=== PATIENT | male | born 1965 | race Caucasian/White ===

== ENCOUNTER 2019-05-14 09:56 | Emergency (ER) | payer MEDICAID ==
--- NOTE | 2019-05-14 10:43 | EDM.PDOC ---
ED HPI GENERAL MEDICAL PROBLEM - General Chief Complaint: General Stated Complaint: CHILLS,WEAKNESS,BODY ACHES Time Seen by Provider: 05/14/19 10:35 Source of Information: Reports: Patient History Limitations: Reports: No Limitations - History of Present Illness INITIAL COMMENTS - FREE TEXT/NARRATIVE: pt has been at [facility] since the Apr, He feels quite ill at this point. He hurts all over. He has had chills and he has had a cough. He does smoke 1 pack daily. Onset: Other ( this has been going on for the past 2 days. ) Duration: Hour(s): Location: Reports: Chest, Generalized Associated Symptoms: Reports: Cough, Fever/Chills - Related Data Allergies Allergy/AdvReac Type Severity Reaction Status Date / Time bee venom protein (honey bee) Allergy Airway Verified 05/14/19 10:12 Tightness morphine Allergy Nausea and Verified 05/14/19 10:12 Vomiting Home Meds: Home Meds Divalproex Sodium [Divalproex Sodium ER] 250 mg PO DAILY 05/14/19 [History] Pantoprazole [ProTONIX] 40 mg PO DAILY 05/14/19 [History] Tamsulosin [Tamsulosin 24 Hr] 0.4 mg PO DAILY 05/14/19 [History] Venlafaxine HCl [Venlafaxine ER] 150 mg PO DAILY 05/14/19 [History] guaiFEN/Phenyleph/Acetaminophn [Severe Sinus Congest-Pain Cplt] 1 tab PO ASDIRECTED 05/14/19 [History] Past Medical History HEENT History: Reports: Impaired Vision Respiratory History: Reports: COPD, Sleep Apnea Gastrointestinal History: Reports: GERD Genitourinary History: Reports: Prostate Disorder Musculoskeletal History: Reports: Back Pain, Chronic Psychiatric History: Reports: Other (See Below) Other Psychiatric History: anger issues Endocrine/Metabolic History: Reports: Obesity/BMI 30+ - Infectious Disease History Infectious Disease History: Reports: Chicken Pox - Past Surgical History Head Surgeries/Procedures: Reports: None HEENT Surgical History: Reports: None Respiratory Surgical History: Reports: None GI Surgical History: Reports: Cholecystectomy Endocrine Surgical History: Reports: None Musculoskeletal Surgical History: Reports: Other (See Below) Other Musculoskeletal Surgeries/Procedures:: half left knee replacement Dermatological Surgical History: Reports: None Social & Family History - Tobacco Use Smoking Status *Q: Current Every Day Smoker Years of Tobacco use: 35 Packs/Tins Daily: 1 Used Tobacco, but Quit: No Second Hand Smoke Exposure: Yes - Caffeine Use Caffeine Use: Reports: Coffee - Recreational Drug Use Recreational Drug Use: Yes Drug Use in Last 12 Months: Yes Recreational Drug Type: Reports: Marijuana/Hashish, Methamphetamine Recreational Drug Use Frequency: Daily ED ROS GENERAL - Review of Systems Review Of Systems: See Below Constitutional: Reports: Chills, Malaise HEENT: Reports: Other (nasal congestion) Respiratory: Reports: Cough Cardiovascular: Reports: No Symptoms Endocrine: Reports: No Symptoms GI/Abdominal: Reports: No Symptoms : Reports: No Symptoms Musculoskeletal: Reports: Muscle Pain Skin: Reports: No Symptoms ED EXAM, GENERAL - Physical Exam Exam: See Below Free Text/Narrative:: pt arrived with a cough, chills and feeling congested. He has been ill for the past 2-3 days. Exam Limited By: No Limitations General Appearance: Alert, No Apparent Distress, Anxious Ears: Normal TMs Nose: Normal Inspection Throat/Mouth: Normal Inspection Head: Atraumatic Neck: Normal Inspection Respiratory/Chest: Other (pt has rhonchi in the upper lung chu. ) Cardiovascular: Regular Rate, Rhythm GI/Abdominal: Soft, Non-Tender (Male) Exam: Deferred Rectal (Males) Exam: Deferred Back Exam: Normal Inspection Extremities: Normal Inspection Course - Vital Signs Last Recorded V/S: Last Vital Signs Temp 36.3 C 05/14/19 10:13 Pulse 104 H 05/14/19 10:13 Resp 15 05/14/19 10:13 BP 138/90 05/14/19 10:13 Pulse Ox 95 05/14/19 10:13 - Orders/Labs/Meds Orders: Active Orders 24 hr Category Date Time Status COMPREHENSIVE METABOLIC PN,CMP [CHEM] Urgent Lab 05/14/19 10:33 Received Labs: Laboratory Tests 05/14/19 05/14/19 Range/Units 10:33 10:41 WBC 11.9 H (4.5-11.0) K/uL RBC 4.93 (4.30-5.90) M/uL Hgb 14.2 (12.0-15.0) g/dL Hct 43.8 (40.0-54.0) % MCV 89 (80-98) fL MCH 29 (27-31) pg MCHC 32 (32-36) % Plt Count 318 (150-400) K/uL Neut % (Auto) 65 (36-66) % Lymph % (Auto) 23 L (24-44) % Dunn % (Auto) 8 H (2-6) % Eos % (Auto) 3 (2-4) % Baso % (Auto) 1 (0-1) % Urine Color Yellow (YELLOW) Urine Appearance Clear (CLEAR) Urine pH 6.0 (5.0-8.0) Ur Specific [place] 1.025 (1.008-1.030) Urine Protein Negative (NEGATIVE) mg/dL Urine Glucose (UA) Negative (NEGATIVE) mg/dL Urine Ketones Negative (NEGATIVE) mg/dL Urine Occult Blood Trace-lysed H (NEGATIVE) Urine Nitrite Negative (NEGATIVE) Urine Bilirubin Negative (NEGATIVE) Urine Urobilinogen 0.2 (0.2-1.0) EU/dL Ur Leukocyte Esterase Negative (NEGATIVE) Urine RBC 5-10 H (0-5) Urine WBC 0-5 (0-5) Ur Epithelial Cells Few Amorphous Sediment Not seen Urine Bacteria Few Urine Mucus Not seen - Re-Assessments/Exams Free Text/Narrative Re-Assessment/Exam: 05/14/19 11:02 pt had a wbc of 12,000. He has no fever. His influ was neg. Departure - Departure Time of Disposition: 11:03 Disposition: Home, Self-Care 01 Condition: Fair Clinical Impression: Bronchitis - Discharge Information Referrals: PCP,None [Primary Care Provider] - Forms: ED Department Discharge Care Plan Goals: push fluids, cool mist humidifier, zithromax 500 mg now and 250 daily for 5 days. tylenol and motrin for body aches. Sepsis Event Note - Evaluation Sepsis Screening Result: No Definite Risk - Focused Exam Vital Signs: Vital Signs Temp Pulse Resp BP Pulse Ox 05/14/19 10:13 36.3 C 104 H 15 138/90 95 05/14/19 10:11 36.3 C 104 H 15 138/90 95 Date Exam was Performed: 05/14/19 Time Exam was Performed: 11:30 - My Orders Last 24 Hours: My Active Orders 05/14/19 10:33 COMPREHENSIVE METABOLIC PN,CMP [CHEM] Urgent - Assessment/Plan Last 24 Hours: My Active Orders 05/14/19 10:33 COMPREHENSIVE METABOLIC PN,CMP [CHEM] Urgent
== END 2019-05-14 11:40 | disposition home or self-care (01) ==
LOC: JP.ED 09:56
DX: J40 Bronchitis, not specified as acute or chronic (principal); F17.210 Nicotine dependence, cigarettes, uncomplicated; Z91.030 Bee allergy status; Z88.5 Allergy status to narcotic agent; Z79.899 Other long term (current) drug therapy
CPT/HCPCS: 36415; 80053; 81001; 85025; 87804; 87804-59; 99283